=== PATIENT | female | born 1945 | race Caucasian/White ===

== ENCOUNTER 2016-12-14 16:04 | Observation (INO) | payer OTHER ==
[~2016-12-14] VITALS: Ht 160 cm; Wt 91.5 kg
[~2016-12-14 16:04] MED LIST: ALBU6.7H INH; ASPI325T PO; CITA40 PO; CYCL-36 PO; EXEN10PE SQ; GABA400 PO; ISOS30TA3 PO; LIPI80TA16 PO; NITR.3 SL; OMEP20CA5 PO; TRAZ150T75 PO; VERA240CR PO
[2016-12-14 16:07] VITALS: BP 136/64; PULSE 78; RESP 20; TEMP 97.8; O2SAT 95
--- NOTE | 2016-12-14 16:11 | PD ---
Physical Exam Time Seen by Provider: 16:09 Narrative 71 y/o female presents for evaluation of dyspnea last night with associated chest pressure radiating into L arm and neck. Symptoms reoccured today which prompted evaluation. vss Seen at triage desk. Awaiting bed placement. Data Data Last Documented VS Vital Signs Date Time Temp Pulse Resp B/P Pulse Ox O2 Delivery O2 Flow Rate FiO2 12/14/16 16:07 97.8 78 20 136/64 95 Room Air [facility] Medical Record Reviewed: Yes Supervised Visit with GALEN: Ruiz Blount December 14, 2016 16:11
--- NOTE | 2016-12-14 18:20 | EKG ---
Date Performed: 12/14/2016 Time Performed: 16:18:06 PTAGE: 71 years EKG: Sinus rhythm WITH SINUS ARRHYTHMIA NORMAL ECG PREVIOUS TRACING : 12/11/2014 01.10 No significant change from previous tracing noted. DOCTOR: Andrey Beyer Interpretating Date/Time 12/14/2016 18:19:12
[2016-12-14 20:27] VITALS: BP 126/60; PULSE 71; RESP 18; O2SAT 98
[2016-12-14 20:28] VITALS: RESP 18; O2SAT 98
--- NOTE | 2016-12-14 20:29 | PD ---
HPI Chief Complaint: Cardiac Complaint Time Seen by Provider: 20:25 Travel History International Travel<30 days: No Contact w/Intl Traveler<30days: No Traveled to known affect area: No History of Present Illness HPI Patient comes in complaining of 3 episodes of chest pain and shortness of breath one last night and 2 today. Patient states pain is pressure-like in nature and radiated to her neck and left upper extremity. Patient reports associated headache and nausea. Patient states she took a full dose aspirin yesterday as well as today for the chest pain. Patient states symptoms lasted for a few minutes each time. Patient tried using her inhalers as well with no improvement of symptoms. Patient's last cardiac catheter was 2008 and last stress test was 2013. 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 Hansen for the first time in a couple of years. Denies any vomiting, diaphoresis, fevers, or abdominal pain. PFSH Past Medical History Arthritis: Yes Asthma: Yes Autoimmune Disease: No Blood Disorders: No Anxiety: No Depression: Yes Heart Rhythm Problems: Yes ("sometimes when i lay on my side i feel fluttering ") Cancer: No Cardiac Catheterization: Yes Cardiovascular Problems: Yes (CATH) High Cholesterol: Yes Chemotherapy: No Chest Pain: Yes Congestive Heart Failure: No COPD: No Cerebrovascular Accident: No Coronary Artery Disease: Yes Diabetes: Yes Diminished Hearing: No Endocrine: No Fibromyalgia: Yes Gastrointestinal Disorders: Yes GERD: Yes Glaucoma: No Genitourinary: No Headaches: Yes Hepatitis: No Hiatal Hernia: Yes Hypertension: Yes Immune Disorder: No Kidney Stones: Yes Musculoskeletal: Yes (BURSITIS) Neurologic: Yes Psychiatric: Yes Reproductive: No Respiratory: Yes (COPD) Migraines: Yes Myocardial Infarction: No Radiation Therapy: No Renal Failure: No Seizures: Yes (> 10 YEARS AGO) Sickle Cell Disease: No Sleep Apnea: No Thyroid Disease: No Ulcer: No Menopausal: Yes : 4 Para: 3 Miscarriage: 1 Tubal Ligation: Yes Past Surgical History Abdominal Surgery: Yes (GALLBLADDER REMOVED) AICD: No Appendectomy: No Arteriovenous Shunt: No Cardiac Surgery: Yes (THOR CATH 2YRS AGO) Cholecystectomy: Yes Coronary Artery Bypass Graft: No Ear Surgery: No Endocrine Surgery: No Eye Surgery: No Genitourinary Surgery: Yes (GALL) Gynecologic Surgery: Yes (TUBAL 33 YRS AGO) Insulin Pump: No Joint Replacement: No Oral Surgery: Yes Pacemaker: No Thoracic Surgery: Yes Valve Replacement: Yes (LEFT BREAST) Other Surgery: Yes (LEFT BREAST ) Social History Alcohol Use: No Tobacco Use: No Substance Use: No Allergies-Medications (Allergen,Severity, Reaction): Coded Allergies: Benadryl (Verified Allergy, Mild, PALPATATIONS, 12/14/16) PT DENIES SHE SAYS SHE HAS TAKEN BENADRYL WITH NO EFFECTS Reported Meds & Prescriptions Reported Meds & Active Scripts Active Flexeril (Cyclobenzaprine HCl) 10 Mg Tab 10 Mg PO Q8 Reported Trazodone Hcl (Trazodone HCl) 150 Mg Tab 150 Mg PO HS Lipitor (Atorvastatin Calcium) 80 Mg Tab 40 Mg PO DAILY Byetta 10 Mcg/Dose Prefilled Pen (Exenatide) 10 Mcg/0.04 Ml Inj 5 Mcg SQ BID Celexa 40 Mg Tab (Citalopram Hydrobromide) 40 Mg Tab 40 Mg PO DAILY Isosorbide Mononitrate Er (Isosorbide Mononitrate) 30 Mg Tab 30 Mg PO DAILY Isoptin Sr (Verapamil HCl) 240 Mg Tabcr 240 Mg PO HS Neurontin (Gabapentin) 400 Mg Cap 400 Mg PO HS Nitrostat (Nitroglycerin) 0.3 Mg Subl 0.4 Mg SL Q4HPRN UNKNOWN DOSE Aspirin 325 mg (Aspirin) 325 Mg Tab 325 Mg PO DAILY Proventil Hfa (Albuterol Sulfate) 6.7 Gm Aero 2 Puff INH Q4HPRN Prilosec 20 mg (Omeprazole) 20 Mg Capcr 1-2 Tab PO DAILY Review of Systems Except as stated in HPI: all other systems reviewed are Neg Physical Exam Narrative GENERAL: Well-developed, overly nourished, in no acute distress, and non-ill appearing. SKIN: Focused skin assessment warm and dry. HEAD: Atraumatic. Normocephalic. EYES: Pupils equal and round. EOMI. No scleral icterus. No injection or drainage. ENT: No nasal bleeding or discharge. Mucous membranes pink and moist. NECK: Trachea midline. Supple. No nuclear rigidity. CARDIOVASCULAR: Regular rate and rhythm. No murmur appreciated. RESPIRATORY: No accessory muscle use. No respiratory distress. Clear to auscultation. Breath sounds equal bilaterally. MUSCULOSKELETAL: No obvious deformities. No clubbing. No cyanosis. No edema. Full range of motion. NEUROLOGICAL: Awake and alert. No obvious cranial nerve deficits. Motor grossly within normal limits. Normal speech. PSYCHIATRIC: Appropriate mood and affect; insight and judgment normal. Data Data Last Documented VS Vital Signs Date Time Temp Pulse Resp B/P Pulse Ox O2 Delivery O2 Flow Rate FiO2 12/14/16 20:49 68 18 136/61 98 Room Air 125/60 12/14/16 16:07 97.8 Orders Electrocardiogram (12/14/16 ) Basic Metabolic Panel (Bmp) (12/14/16 20:24) Ckmb (Isoenzyme) Profile (12/14/16 20:24) Complete Blood Count With Diff (12/14/16 20:24) Magnesium (Mg) (12/14/16 20:24) Prothrombin Time / Inr (Pt) (12/14/16 20:24) Act Partial Throm Time (Ptt) (12/14/16 20:24) Troponin I (12/14/16 20:24) Chest, Single Ap (12/14/16 20:24) Ecg Monitoring (12/14/16 20:24) Bilateral Bp Monitoring (12/14/16 20:24) Iv Access Insert/Monitor (12/14/16 20:24) Oximetry (12/14/16 20:24) Oxygen Administration (12/14/16 20:24) Sodium Chloride 0.9% Flush (Ns Flush) (12/14/16 20:30) Potassium Chloride (Kcl) (12/14/16 22:00) Admit Order (Ed Use Only) (12/14/16 22:22) Activity Bed Rest With Brp (12/14/16 22:22) Vital Signs (Adult) Q4H (12/14/16 22:22) Cardiac Rhythm .As Directed (12/14/16 22:22) Notify Dr: Other .PRN (12/14/16 22:22) Notify Parameters (12/14/16 22:22) Resp Oxygen Nasal Cannula (12/14/16 ) Ckmb (Isoenzyme) Profile (12/14/16 23:50) Ckmb (Isoenzyme) Profile (12/15/16 02:50) Troponin I (12/14/16 23:50) Troponin I (12/15/16 02:50) Electrocardiogram (12/14/16 23:50) Electrocardiogram (12/15/16 02:50) ^ Obtain (12/14/16 22:22) Sodium Chloride 0.9% Flush (Ns Flush) (12/14/16 22:30) Sodium Chloride 0.9% Flush (Ns Flush) (12/15/16 09:00) Mortgage Originator / Telemetry NYA.Q8H (12/14/16 22:22) Labs Laboratory Tests Test 12/14/16 20:50 White Blood Count 10.3 TH/MM3 Red Blood Count 4.26 MIL/MM3 Hemoglobin 12.0 GM/DL Hematocrit 35.6 % Mean Corpuscular Volume 83.5 FL Mean Corpuscular Hemoglobin 28.2 PG Mean Corpuscular Hemoglobin 33.7 % Concent Red Cell Distribution Width 14.7 % Platelet Count 255 TH/MM3 Mean Platelet Volume 10.0 FL Neutrophils (%) (Auto) 65.4 % Lymphocytes (%) (Auto) 24.5 % Monocytes (%) (Auto) 8.1 % Eosinophils (%) (Auto) 1.6 % Basophils (%) (Auto) 0.4 % Neutrophils # (Auto) 6.8 TH/MM3 Lymphocytes # (Auto) 2.5 TH/MM3 Monocytes # (Auto) 0.8 TH/MM3 Eosinophils # (Auto) 0.2 TH/MM3 Basophils # (Auto) 0.0 TH/MM3 CBC Comment DIFF FINAL Differential Comment Prothrombin Time 10.7 SEC Prothromb Time International 1.0 RATIO Ratio Activated Partial 26.3 SEC Thromboplast Time Sodium Level 141 MEQ/L Potassium Level 3.4 MEQ/L Chloride Level 106 MEQ/L Carbon Dioxide Level 26.5 MEQ/L Anion Gap 9 MEQ/L Blood Urea Nitrogen 13 MG/DL Creatinine 0.61 MG/DL Estimat Glomerular Filtration 97 ML/MIN Rate Random Glucose 163 MG/DL Calcium Level 8.4 MG/DL Magnesium Level 1.8 MG/DL Total Creatine Kinase 93 U/L Troponin I LESS THAN 0.02 NG/ML MDM Medical Decision Making Medical Screen Exam Complete: Yes Emergency Medical Condition: Yes Medical Record Reviewed: Yes Interpretation(s) EKG reviewed by Dr. Lang shows sinus rhythm with ventricular is 75. No STEMI. Differential Diagnosis Angina, acute coronary syndrome, pneumonia, other Narrative Course Patient was seen and examined. Initial laboratory and radiological studies were obtained and reviewed. Patient potassium was replaced. Discussed patient with Dr. Lang, who recommends having patient admitted to the chest pain center for further treatment and evaluation. Discussed all findings and plan care of patient, who was agreeable for admission. All questions were answered. Patient remained stable in the emergency department. Diagnosis Primary Impression: Chest pain Qualified Code: R07.9 - Chest pain, unspecified type Admitting Information Admitting Physician Requests: Observation Condition: Stable Gerry Cheema December 14, 2016 20:29
[2016-12-14] MEDS ORDERED: SODIUM CHLORIDE 0.9% FLUSH 10 ML FLUSH IVF PRN (20:30)
[2016-12-14 20:49] VITALS: BP_SYST 125; BP_SYST 136; BP_DIAS 60; BP_DIAS 61; PULSE 68; RESP 18; O2SAT 98
--- NOTE | 2016-12-14 20:53 | RADRPT ---
EXAM DATE/TIME: 12/14/2016 20:38 [facility] COMPARISON: No previous studies available for comparison. INDICATIONS : Chest pain. MEDICAL HISTORY : None. SURGICAL HISTORY : None. ENCOUNTER: Initial ACUITY: 1 day PAIN SCORE: 5/10 LOCATION: Bilateral chest FINDINGS: A single view of the chest demonstrates the lungs to be symmetrically aerated without evidence of mas s, infiltrate or effusion. The cardiomediastinal contours are unremarkable. Osseous structures are intact. CONCLUSION: No evidence of acute cardiopulmonary disease. Donta Packer MD on December 14, 2016 at 20:51 Board Certified Radiologist. This report was verified electronically.
[2016-12-14 21:18] VITALS: BP 144/79; PULSE 94; RESP 16; O2SAT 98
[2016-12-14 21:21] LABS: AUTOMATED NEUTROPHIL # 6.8 TH/MM3 (1.8-7.7); BASOPHIL % 0.4 % (0.0-2.0); EOSINOPHIL # 0.2 TH/MM3 (0-0.4); EOSINOPHIL % 1.6 % (0.0-4.0); HEMATOCRIT 35.6 % (35.0-46.0); HEMO FLAGS DIFF FINAL; LYMPH % 24.5 % (9.0-44.0); LYMPHOCYTE # 2.5 TH/MM3 (1.0-4.8); MEAN CELL VOLUME 83.5 FL (80.0-100.0); MEAN CORPUSCULAR HEMOGLOBIN 28.2 PG (27.0-34.0); MEAN CORPUSCULAR HGB CONC 33.7 % (32.0-36.0); MONO % 8.1 % (0.0-8.0); NEUT % 65.4 % (16.0-70.0); PLATELET COUNT 255 TH/MM3 (150-450); RED BLOOD COUNT 4.26 MIL/MM3 (4.00-5.30); RED CELL DISTRIBUTION WIDTH 14.7 % (11.6-17.2); WHITE BLOOD COUNT 10.3 TH/MM3 (4.0-11.0)
[2016-12-14 21:31] LABS: APTT (PATIENT) 26.3 SEC (24.3-30.1); PROTHROMBIN TIME - PATIENT 10.7 SEC (9.8-11.6)
[2016-12-14 21:40] LABS: ANION GAP 9 MEQ/L (5-15); BICARBONATE 26.5 MEQ/L (21.0-32.0); BLOOD UREA NITROGEN 13 MG/DL (7-18); CHLORIDE 106 MEQ/L (98-107); GLOMERULAR FILTRATION RATE 97 ML/MIN (>89); MAGNESIUM 1.8 MG/DL (1.5-2.5); POTASSIUM 3.4 MEQ/L (3.5-5.1); SODIUM (NA) 141 MEQ/L (136-145)
[2016-12-14 21:53] LABS: CREATINE KINASE 93 U/L (26-192)
[2016-12-14] MEDS ORDERED: POTASSIUM CHLORIDE 20 MEQ CONTROLLED RELEASE TAB PO ONE (22:00)
[2016-12-14] MEDS ORDERED: SODIUM CHLORIDE 0.9% FLUSH 10 ML FLUSH IV FLUSH PRN (22:30)
[2016-12-14] MEDS ORDERED: NITR1SUB3 SL (23:10)
[2016-12-14] MEDS ORDERED: ISOS30TA3 PO (23:10)
[2016-12-14] MEDS ORDERED: TRAZ150T75 PO (23:10)
[2016-12-14] MEDS ORDERED: OMEP20TA PO (23:10)
[2016-12-14] MEDS ORDERED: LOSA25TA PO (23:10)
[2016-12-14] MEDS ORDERED: VERA240T16 PO (23:10)
[2016-12-14] MEDS ORDERED: GABA400C5 PO (23:10)
[2016-12-14] MEDS ORDERED: ATOR40TA16 PO (23:10)
[2016-12-14] MEDS ORDERED: ALBU6.7H INH (23:10)
[2016-12-14] MEDS ORDERED: ASPI325T PO (23:10)
[2016-12-14] MEDS ORDERED: CYCL1TAB29 PO (23:12)
[2016-12-14] MEDS ORDERED: METF-382 PO (23:15)
[2016-12-14] MEDS ORDERED: METF500T4 PO (23:15)
[2016-12-14] MEDS ORDERED: BUTA1CAP PO ×2 (23:19→23:53)
[2016-12-14] MEDS ORDERED: CELE40TA PO (23:22)
[2016-12-15] VITALS (9 sets, daily range): BP systolic 117–139; BP diastolic 58–66; PULSE 58–72; RESP 16–20; TEMP 96.2–97.8; O2SAT 94–99
[2016-12-15] MEDS ORDERED: ACETAMIN 325 MG/BUTALBITAL 50 MG/CAFFEINE 40 MG TAB PO ONE ×2 (00:15→12:00)
[2016-12-15] MEDS ORDERED: GABAPENTIN 400 MG CAP PO ONE (01:00)
[2016-12-15] MEDS ORDERED: traZODone HCL 100 MG TAB PO ONE (01:00)
[2016-12-15 01:25] LABS: CREATINE KINASE 79 U/L (26-192)
[2016-12-15 04:20] LABS: CREATINE KINASE 76 U/L (26-192)
--- NOTE | 2016-12-15 08:00 | HHI.HP ---
HPI Primary Care Physician Cheo Bennett MD Chief Complaint Chest pressure History of Present Illness 71-year-old female presents to the emergency room for further evaluation chest discomfort, left arm pain, and shortness of breath. Onset 7 PM Wednesday evening, nonexertional she was sitting on the couch. Experienced sudden shortness of breath described as "gasping for air" accompanied with substernal chest tightness and left arm, left shoulder "severe pain." Episode lasted approximately 1 minute. On Wednesday afternoon she developed the same left arm left shoulder been accompanied with left neck pain, shortness of breath not as severe as Wednesday's episode with this episode lasted hours. Chest pressure. Episode lasted hours. And it hurt to move her arm. She has never had pain like this in the past. 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 Review of Systems General: No fatigue,weakness, fever, chills, recent illness change, or change in appetite HEENT: No PETERSON, no nasal congestion or drainage, no dysphasia CV: As stated above. States chest pressure has much improved and "mild at this time." No palpitations, intermittent leg pain, or dizziness. RESP: No SOB, cough, wheeze, recent URI. Endorses COPD and asthma and stable. GI: Late part of last week had 24 hours and diarrhea this is since resolved. No nausea, vomiting, bowel changes, constipation, pain, distention, melena, blood in the stool. : No dysuria, urgency, frequency EXT: No lower leg edema, no paraesthesias MS: No discomfort or change in ROM NEURO: No change in memory, dizziness, difficulty with balance, LOC, motor/ sensory deficits PSYCH: Stable anxiety and depression on current medications. SKIN: No rashes, no concerning lesions Past Family Social History Allergies: Coded Allergies: Benadryl (Verified Allergy, Mild, PALPATATIONS, 12/14/16) PT DENIES SHE SAYS SHE HAS TAKEN BENADRYL WITH NO EFFECTS Past Medical History Anxiety, depression, GERD, neuropathy, angina Reported Medications Active Reported Fioricet (Szlyxielrj-Vdahgnpdzayhb-Eoczkzqb) 50-300-40 Mg Cap 1-2 Cap PO Q6H PRN Celexa (Citalopram Hydrobromide) 40 Mg Tab 40 Mg PO DAILY Metformin ER (Metformin HCl) 500 Mg Adrienne 500 Mg PO TIDPC With evening meal Flexeril (Cyclobenzaprine HCl) 10 Mg Tab 10 Mg PO Q8HR PRN Atorvastatin (Atorvastatin Calcium) 40 Mg Tab 40 Mg PO HS Aspirin 325 Mg Tab 325 Mg PO DAILY Proventil Hfa 6.7 GM Inh (Albuterol Sulfate) 90 Mcg/Act Aer 2 Puff INH Q4HR PRN Gabapentin 400 Mg Cap 400 Cap PO HS Isosorbide Mononitrate ER (Isosorbide Mononitrate) 30 Mg Adrienne 30 Mg PO DAILY Nitroglycerin SL (Nitroglycerin) 0.4 Mg Subl 0.4 Mg SL DIRECTED PRN ONE TABLET UNDER THE TONGUE NEEDED FOR CHEST PAIN, MAY REPEAT EVERY FIVE MINUTES FOR A TOTAL OF 3 DOSES OR CALL 911 IF NO RELIEF Omeprazole 20 Mg Tab 20 Mg PO DAILY Trazodone (Trazodone HCl) 150 Mg Tab 150 Mg PO HS Losartan (Losartan Potassium) 25 Mg Tab 25 Mg PO DAILY Verapamil SR (Verapamil HCl) 240 Mg Tab 240 Mg PO HS Active Ordered Medications Current Medications Medications (Trade) Dose Ordered Sig/Akbar Route Start Time Stop Time Status Last Admin Family History Noncontributory for early onset cardiovascular disease. Social History Known diabetes, hypertension, and hyperlipidemia. Lifelong nonsmoker. Denies any alcohol or illegal drug use. Past Cardiac testing No recent stress testing. Seen Dr. Hansen 2 months ago. Last stress test completed 2013. 2008 cardiac catheterization1. Normal LVF. 2. Severe disease of the nondominant RCA. This will be medically managed as it is too small for revascularization. Physical Exam Vital Signs Vital Signs Date Time Temp Pulse Resp B/P Pulse Ox O2 Delivery O2 Flow Rate FiO2 12/15/16 07:47 58 12/15/16 05:48 97.8 65 18 135/59 97 12/15/16 04:01 97.8 62 18 139/63 95 12/15/16 03:49 66 18 131/60 98 Room Air 12/15/16 00:15 65 18 127/58 99 Room Air 12/14/16 22:42 99 Room Air 12/14/16 20:49 68 18 136/61 98 Room Air 125/60 12/14/16 20:28 18 98 Room Air 12/14/16 20:27 71 18 126/60 98 Room Air 12/14/16 20:24 69 18 98 Room Air 12/14/16 16:07 97.8 78 20 136/64 95 Room Air Physical Exam GENERAL: Alert WN, WD, NAD, pleasant, obese, female HEAD: NC, AT EYES: Sclera clear, conjunctiva without injection ENT: Mucous membranes pink and moist NECK: Supple, no masses, trachea midline CV: RRR, without murmur, rub, gallop, no JVD, S1-S2 no S3-S4. No carotid bruits. RESP: Clear lungs throughout bilateral, no crackles, wheeze, rhonchi, symmetrical chest rise, nonlabored, able to speak in full sentences. ABD: Soft, NT, ND, no masses, positive bowel tones EXT: Pulses +14, no dependent edema MS: Normal tone 4 extremities, nontender, no obvious deformities, full range of motion NEURO: CN II through CN XII grossly intact, motor strength 5/5, gait WNL PSYCH: A+O 3, pleasant affect, appropriate speech, appropriate mood and affect , insight and judgment SKIN: Normal turgor, normal texture, no lesions, no rashes Laboratory Laboratory Tests Test 12/14/16 12/15/16 12/15/16 20:50 00:42 03:07 White Blood Count 10.3 Red Blood Count 4.26 Hemoglobin 12.0 Hematocrit 35.6 Mean Corpuscular Volume 83.5 Mean Corpuscular Hemoglobin 28.2 Mean Corpuscular Hemoglobin 33.7 Concent Red Cell Distribution Width 14.7 Platelet Count 255 Mean Platelet Volume 10.0 Neutrophils (%) (Auto) 65.4 Lymphocytes (%) (Auto) 24.5 Monocytes (%) (Auto) 8.1 Eosinophils (%) (Auto) 1.6 Basophils (%) (Auto) 0.4 Neutrophils # (Auto) 6.8 Lymphocytes # (Auto) 2.5 Monocytes # (Auto) 0.8 Eosinophils # (Auto) 0.2 Basophils # (Auto) 0.0 CBC Comment DIFF FINAL Differential Comment Prothrombin Time 10.7 Prothromb Time International 1.0 Ratio Activated Partial 26.3 Thromboplast Time Sodium Level 141 Potassium Level 3.4 Chloride Level 106 Carbon Dioxide Level 26.5 Anion Gap 9 Blood Urea Nitrogen 13 Creatinine 0.61 Estimat Glomerular Filtration 97 Rate Random Glucose 163 Calcium Level 8.4 Magnesium Level 1.8 Total Creatine Kinase 93 79 76 Troponin I LESS THAN 0.02 LESS THAN 0.02 LESS THAN 0.02 Result Diagram: 12/14/16204912/14/162049 Imaging Last Impressions Chest X-Ray 12/14/162023 Signed Impressions: Service Date/Time: Wednesday, December 14, 2016 20:38 - CONCLUSION: No evidence of acute cardiopulmonary disease. Donta Packer MD Course EKGs 3 EKGs show normal sinus rhythm, no ST or T-segment changes Assessment and Plan Assessment and Plan #1 Chest painadmitted to chest pain center. With 3 sets of EKGs, cardiac enzymes, and monitored overnight. Seen and evaluated by Dr. Juno Fragoso. Will order chemical stress test for this morning. If stress test is unremarkable she will be later discharged this afternoon. Discussed with patient in length and she is agreeable to this plan of care. #2 Depressioncontinue Celexa #3 Hyperlipidemiacontinue atorvastatin #4 Diabetescontinue metformin #5 Angina-continue Imdur #6 Hypertension-continue losartan and verapamil #7 GERD continue omeprazole Enriqueta Sánchez December 15, 2016 08:00
[2016-12-15] MEDS ORDERED: SODIUM CHLORIDE 0.9% FLUSH 10 ML FLUSH IV FLUSH PRN (08:15)
[2016-12-15] MEDS ORDERED: ACETAMINOPHEN 500 MG CPLT PO PRN (08:15)
[2016-12-15] MEDS ORDERED: ONDANSETRON HCL 4 MG/2 ML VIAL IV PRN (08:15)
[2016-12-15] MEDS ORDERED: NITROGLYCERIN 0.4 MG SL 25 TABS/BTL SL PRN (08:15)
[2016-12-15] MEDS ORDERED: ISOSORBIDE MONONITRATE 30 MG TAB PO SCH (09:00)
[2016-12-15] MEDS ORDERED: SODIUM CHLORIDE 0.9% FLUSH 10 ML FLUSH IV FLUSH SCH (09:00)
[2016-12-15] MEDS ORDERED: metFORMIN HCL 500 MG TAB PO SCH (09:00)
[2016-12-15] MEDS ORDERED: ASPIRIN 325 MG TAB PO SCH (09:00)
[2016-12-15] MEDS ORDERED: CITALOPRAM HYDROBROMIDE 40 MG TAB PO SCH (09:00)
[2016-12-15] MEDS ORDERED: PANTOPRAZOLE SOD 20 MG DELAYED RELEASE TAB PO SCH (09:00)
[2016-12-15] MEDS ORDERED: LOSARTAN 25 MG TAB PO SCH (09:00)
[2016-12-15] MEDS ORDERED: REGADENOSON INJ 0.4 MG/5 ML SYR ONE (09:42)
--- NOTE | 2016-12-15 11:09 | RADRPT ---
EXAM DATE/TIME: 12/15/2016 08:58 [facility] COMPARISON: No previous studies available for comparison. INDICATIONS : Chest pain radiating to the back with dyspnea, headache and nausea. Angina. DOSE: 25.8 mCi Tc99m Myoview at stress. 8.4 mCi Tc99m Myoview at rest. 0.4 mg Lexiscan STRESS SYMPTOMS: Short of breath. EJECTION FRACTION: 68% MEDICAL HISTORY : Gastroesophageal reflux disease. Chronic obstructive pulmonary disease. Hypercholesterolemia. Hyperte nsion. Hiatal Hernia. SURGICAL HISTORY : Tubal ligation. Cholecystectomy. ENCOUNTER: Initial ACUITY: 2 days PAIN SCALE: 6/10 LOCATION: chest TECHNIQUE: The patient underwent pharmacologic stress with infusion of prescribed dose. Continuous ECG tracing was monitored during stress. Gated SPECT imaging was performed after stress and conventional SPECT i maging was performed at rest. The examination was performed on a SPECT/CT scanner, both attenuation and non-corrected datasets were reviewed. FINDINGS: DISTRIBUTION: The maximum perfused segment at stress is in the anterolateral wall. PERFUSION STUDY: The pattern of perfusion at stress is within normal limits. GATED STUDY: There is intact wall motion and thickening without hypokinetic or dyskinetic segments. CONCLUSION: Normal examination. RISK CATEGORY: Low (<1% Annual Mortality Rate) Donta Azul MD on December 15, 2016 at 11:05 Board Certified Radiologist. This report was verified electronically.
--- NOTE | 2016-12-15 11:24 | HHI.DCPOC ---
Discharge Care Plan Diagnosis: (1) Atypical chest pain (2) Diabetes mellitus type 2 in obese (3) Hypertension (4) Hyperlipidemia Goals to Promote Your Health * To prevent worsening of your condition and complications * To maintain your health at the optimal level Directions to Meet Your Goals Take your medications as prescribed Follow your dietary instruction Follow activity as directed Keep your appointments as scheduled Take your immunizations and boosters as scheduled If your symptoms worsen call your PCP, if no PCP go to Urgent Care Center or Emergency Room Smoking is Dangerous to Your Health. Avoid second hand smoke Call the 24-hour hour crisis hotline for domestic abuse at Enriqueta Sánchez December 15, 2016 11:24
[2016-12-15] MEDS ORDERED: LOPERAMIDE HCL 2 MG CAP PO ONE (11:30)
--- NOTE | 2016-12-15 14:36 | EKG ---
Date Performed: 12/15/2016 Time Performed: 00:29:13 PTAGE: 71 years EKG: Sinus rhythm NORMAL ECG PREVIOUS TRACING : 12/14/2016 16.18 Since previous tracing, no significant change noted DOCTOR: Juno Fragoso Interpretating Date/Time 12/15/2016 14:34:51
--- NOTE | 2016-12-15 14:36 | EKG ---
Date Performed: 12/15/2016 Time Performed: 03:40:41 PTAGE: 71 years EKG: Sinus rhythm WITH SINUS ARRHYTHMIA NORMAL ECG PREVIOUS TRACING : 12/15/2016 00.29 Since previous tracing, no significant change noted DOCTOR: Juno Fragoso Interpretating Date/Time 12/15/2016 14:34:08
--- NOTE | 2016-12-15 14:40 | EKG ---
Date Performed: 12/15/2016 Time Performed: 05:41:50 PTAGE: 71 years EKG: Sinus rhythm WITH MARKED SINUS ARRHYTHMIA BORDERLINE ECG INTERPRETATION BASED ON A DEFAULT AGE OF 40 YEARS PREVIOUS TRACING : 12/15/2016 03.40 Since previous tracing, no significant change noted DOCTOR: Juno Fragoso Interpretating Date/Time 12/15/2016 14:40:14
--- NOTE | 2016-12-15 14:49 | TR ---
Date Performed: 12/15/2016 Time Performed: 09:49:08 DOCTOR: Juno Fragoso DRUG LIST: LIPITOR ASA CLINICAL HISTORY: HTN ASTHMA DIABETES CARDIAC CATH CHESS REASON FOR TEST: REASON FOR ENDING: OBSERVATION: CONCLUSION: Lexiscan stress test was performed under standard four minute protocol. Radionuclid e was injected one minute prior to ending the test. No electrocardiographic abormalities were present to suggest ischemia. Nuclear imaging and interpretation are pending. COMMENTS:
[2016-12-15] MEDS ORDERED: ATORVASTATIN 40 MG TAB PO SCH (21:00)
[2016-12-15] MEDS ORDERED: VERAPAMIL HCL 240 MG SUSTAINED RELEASE TAB PO SCH (21:00)
== END 2016-12-15 14:06 | disposition home or self-care (01) ==
LOC: NEPE 16:04 → NEDA 22:25 → NEPFCDU 12-15 03:54
PROVIDERS: ADMIT Internal Medicine Cardiovascular Disease; ATTEND Internal Medicine Cardiovascular Disease
DX: R07.89 Other chest pain (principal); I10 Essential (primary) hypertension; R94.31 Abnormal electrocardiogram [ECG] [EKG]; E78.5 Hyperlipidemia, unspecified; E11.9 Type 2 diabetes mellitus without complications; E78.00 Pure hypercholesterolemia, unspecified; J44.9 Chronic obstructive pulmonary disease, unspecified; J45.909 Unspecified asthma, uncomplicated; K21.9 Gastro-esophageal reflux disease without esophagitis; F32.9 Major depressive disorder, single episode, unspecified; M79.7 Fibromyalgia; Z87.442 Personal history of urinary calculi
CPT/HCPCS: 71010; 78452; 80048; 82550; 83735; 84484; 85025; 85610; 85730; 93005; 93017; 99285; A9502; G0378; J2785

== ENCOUNTER → 2017-02-19 | Outpatient (CLI) | payer OTHER ==
[~2017-02-19] MED LIST changes: +ATOR40TA16 PO; +BUTA1CAP PO; +CELE40TA PO; -CITA40 PO; -CYCL-36 PO; +CYCL1TAB29 PO; -EXEN10PE SQ; -GABA400 PO; +GABA400C5 PO; -LIPI80TA16 PO; +LOSA25TA PO; +METF500T4 PO; -NITR.3 SL; +NITR1SUB3 SL; -OMEP20CA5 PO; +OMEP20TA PO; -VERA240CR PO; +VERA240T16 PO
--- NOTE | 2017-02-23 11:02 | RSPPFT ---
DATE OF PROCEDURE: 02/19/17 COMMENTS: VOLUMES DYNAMIC: FVC and FEV1 normal. STATIC: RV, FRC mildly reduced; TLC normal. FLOWS: FEV1% and FEF 25-75 normal. DIFFUSION: Low normal. FLOW VOLUME LOOP: Normal configuration. IMPRESSION: Mild reduction in FRC and RV possibly due to increased BMI with no other associated obstruction and normal total lung capacity. Diffusion capacity is normal. There is no improvement post-bronchodilator.
== END ==
LOC: HRSP 13:04
PROVIDERS: ATTEND Internal Medicine
DX: J45.909 Unspecified asthma, uncomplicated (principal)
CPT/HCPCS: 94060; 94620; 94726; 94729; 95012

== ENCOUNTER 2017-03-08 11:43 | Emergency (ER) | payer OTHER ==
[~2017-03-08] VITALS: Ht 165.1 cm; Wt 75.0 kg
[2017-03-08 12:18] VITALS: BP 162/76; PULSE 78; RESP 20; TEMP 98.3; O2SAT 98
--- NOTE | 2017-03-08 13:06 | PD ---
HPI Chief Complaint: Pain: Acute or Chronic Time Seen by Provider: 12:55 Travel History International Travel<30 days: No Contact w/Intl Traveler<30days: No Traveled to known affect area: No History of Present Illness HPI 72-year-old female who reports a history of osteoporosis, diabetes, hypertension , hyperlipidemia. She presents via EMS for evaluation of all flank pain. She reports that 5 days ago she bent over in order to grab a pain. She felt a twinge of pain in her left leg at that time. Over the course of the past 5 days she has had worsening pain in her left leg, primarily thigh region but also occasional twinges of pain in her left lower leg. The pain is a sharp/ shooting pain which is constant, worse with movement of the left leg. She tried using naproxen but symptoms persisted which prompted evaluation. She versus chronic lower back pain but does not feel that it is any worse over the past few days. She denies any bowel or bladder incontinence or saddle anesthesia, lower extremity paresthesias or weakness, nausea or vomiting, abdominal pain. She has no other complaints. PFSH Past Medical History Arthritis: Yes Asthma: Yes Autoimmune Disease: No Blood Disorders: No Anxiety: No Depression: Yes Heart Rhythm Problems: Yes ("sometimes when i lay on my side i feel fluttering ") Cancer: No Cardiac Catheterization: Yes High Cholesterol: Yes Chemotherapy: No Chest Pain: Yes Congestive Heart Failure: No COPD: No Cerebrovascular Accident: No Coronary Artery Disease: Yes Diabetes: No Diminished Hearing: No Endocrine: No Fibromyalgia: Yes Gastrointestinal Disorders: Yes GERD: Yes Glaucoma: No Genitourinary: No Headaches: Yes Hepatitis: No Hiatal Hernia: Yes Hypertension: Yes Immune Disorder: No Kidney Stones: Yes Musculoskeletal: Yes (BURSITIS) Neurologic: Yes Psychiatric: Yes Reproductive: No Respiratory: Yes (COPD) Migraines: Yes Myocardial Infarction: No Radiation Therapy: No Renal Failure: No Seizures: Yes (> 10 YEARS AGO) Sickle Cell Disease: No Sleep Apnea: No Thyroid Disease: No Ulcer: No Menopausal: Yes : 4 Para: 3 Miscarriage: 1 Tubal Ligation: Yes Past Surgical History Abdominal Surgery: Yes (GALLBLADDER REMOVED) AICD: No Appendectomy: No Arteriovenous Shunt: No Cardiac Surgery: Yes (HEART CATH 2YRS AGO) Cholecystectomy: Yes Coronary Artery Bypass Graft: No Ear Surgery: No Endocrine Surgery: No Eye Surgery: No Genitourinary Surgery: Yes (GALL) Gynecologic Surgery: Yes (TUBAL 33 YRS AGO) Insulin Pump: No Joint Replacement: No Oral Surgery: Yes Pacemaker: No Thoracic Surgery: Yes Valve Replacement: Yes (LEFT BREAST) Other Surgery: Yes (LEFT BREAST CALCIFACTIONS REMOVED) Social History Alcohol Use: No Tobacco Use: No Substance Use: No Allergies-Medications (Allergen,Severity, Reaction): Coded Allergies: Benadryl (Verified Allergy, Mild, PALPATATIONS, 12/14/16) PT DENIES SHE SAYS SHE HAS TAKEN BENADRYL WITH NO EFFECTS Reported Meds & Prescriptions Reported Meds & Active Scripts Active Baclofen 10 Mg Tab 10 Mg PO Q8HR PRN 7 Days Tylenol-Codeine #3 (Acetaminophen-Codeine) 300-30 mg Tab 1 Tab PO Q4H PRN Naproxen 500 Mg Tab 500 Mg PO BID 7 Days Reported Fioricet (Rmxhrhdtfa-Vvnjwqmnghdxk-Tcuqyfej) 50-300-40 Mg Cap 1-2 Cap PO Q6H PRN Celexa (Citalopram Hydrobromide) 40 Mg Tab 40 Mg PO DAILY Metformin ER (Metformin HCl) 500 Mg Adrienne 500 Mg PO TIDPC With evening meal Flexeril (Cyclobenzaprine HCl) 10 Mg Tab 10 Mg PO Q8HR PRN Atorvastatin (Atorvastatin Calcium) 40 Mg Tab 40 Mg PO HS Aspirin 325 Mg Tab 325 Mg PO DAILY Proventil Hfa 6.7 GM Inh (Albuterol Sulfate) 90 Mcg/Act Aer 2 Puff INH Q4HR PRN Gabapentin 400 Mg Cap 400 Cap PO HS Isosorbide Mononitrate ER (Isosorbide Mononitrate) 30 Mg Adrienne 30 Mg PO DAILY Nitroglycerin SL (Nitroglycerin) 0.4 Mg Subl 0.4 Mg SL DIRECTED PRN ONE TABLET UNDER THE TONGUE NEEDED FOR CHEST PAIN, MAY REPEAT EVERY FIVE MINUTES FOR A TOTAL OF 3 DOSES OR CALL 911 IF NO RELIEF Omeprazole 20 Mg Tab 20 Mg PO DAILY Trazodone (Trazodone HCl) 150 Mg Tab 150 Mg PO HS Losartan (Losartan Potassium) 25 Mg Tab 25 Mg PO DAILY Verapamil SR (Verapamil HCl) 240 Mg Tab 240 Mg PO HS Review of Systems Except as stated in HPI: all other systems reviewed are Neg Physical Exam Narrative GENERAL: Well-developed well-nourished female in no acute distress SKIN: Warm and dry. HEAD: Atraumatic. Normocephalic. EYES: Pupils equal and round. No scleral icterus. No injection or drainage. ENT: No nasal bleeding or discharge. Mucous membranes pink and moist. NECK: Trachea midline. No JVD. CARDIOVASCULAR: Regular rate and rhythm. No murmur appreciated. RESPIRATORY: No accessory muscle use. Clear to auscultation. Breath sounds equal bilaterally. GASTROINTESTINAL: Abdomen soft, non-tender, nondistended. Hepatic and splenic margins not palpable. MUSCULOSKELETAL: No obvious deformities. There is no tenderness to palpation along the thoracic or lumbar midline spine. There is some tenderness to palpation to the anterior left thigh musculature. The compartments of the left thigh and calf are soft. Negative Homans. No lower extremity edema. 2+ dorsalis pedis, posterior tibial, femoral pulses bilaterally. The patient has pain with left hip flexion, extension, leg flexion and extension. NEUROLOGICAL: Awake and alert. No obvious cranial nerve deficits. Motor grossly within normal limits. Normal speech. Data Data Last Documented VS Vital Signs Date Time Temp Pulse Resp B/P Pulse Ox O2 Delivery O2 Flow Rate FiO2 03/08/17 12:18 98.3 78 20 162/76 98 Orders Hip, Uni(Ap&Lat) W Ap Pelvis (03/08/17 ) Spine, Lumbar - Ltd (Ap & Lat) (03/08/17 ) Us Leg Venous Doppler (03/08/17 13:01) Ketorolac Inj (Toradol Inj) (03/08/17 13:15) Morphine Inj (Morphine Inj) (03/08/17 13:15) Ondansetron Inj (Zofran Inj) (03/08/17 13:15) Iv Access Insert/Monitor (03/08/17 13:01) [facility] Medical Decision Making Medical Screen Exam Complete: Yes Emergency Medical Condition: Yes Medical Record Reviewed: Yes Differential Diagnosis Muscle strain, spasm, compression fracture, avulsion fracture, peripheral vascular disease, claudication, arterial occlusion, DVT, piriformis syndrome, herniated pulposus Narrative Course 72-year-old female has been experiencing left leg pain which started after she bent over in order to lift up in 5 days ago. Physical examination is reassuring. She has bounding lower extremity pulses bilaterally with no evidence of peripheral vascular disease or arterial occlusion. She has no lower extremity edema. She has no bony deformity. She has mild tenderness to palpation of the anterior left thigh but her pain is primarily reproduced with range of motion activities of the proximal left leg. Given her history and mechanism injury I suspect a muscle strain, possibly radicular component of her pain. Given her history of osteoporosis, x-ray imaging the lower back and pelvis were performed and they were negative for acute process. Ultrasound of the left leg was performed and this was negative for DVT. The patient was given pain medication with improvement in her symptoms. At this point on the clinical be to treat the patient symptomatically with a short course of NSAIDs, muscle relaxants, Tylenol with codeine for breakthrough pain and have her follow up with her primary care physician later on this week. She is agreeable to this plan. She is stable for discharge. Diagnosis Primary Impression: Left leg pain Additional Instructions: Medication as needed. Take naproxen with meals. Do not drive or drink alcohol when taking baclofen or Tylenol with Codeine as a May cause sedation. Avoid strenuous activity. Use walker/cane as needed. Follow up in 2-3 days with primary care physician and return for any emergent medical conditions. Med/Other Pt SpecificInfo: Prescription(s) given Scripts Baclofen 10 Mg Tab10 Mg PO Q8HR PRN (MUSCLE SPASM) 7 Days Ref 0 Prov:Kailee Rodriguez MD 03/08/17 Acetaminophen-Codeine (Tylenol-Codeine #3)300-30 mg Tab1 Tab PO Q4H PRN (PAIN) # 20 TAB Ref 0 Prov:Kailee Rodriguez MD 03/08/17 Naproxen 500 Mg Toc058 Mg PO BID 7 Days Ref 0 Prov:Kailee Rodriguez MD 03/08/17 Disposition: 01 DISCHARGE HOME Condition: Stable Ruiz Quiroz Mar 08, 2017 13:06
[2017-03-08] MEDS ORDERED: KETOROLAC TROMETHAMINE 30 MG/ML (IVP) VIAL IV PUSH ONE (13:15)
[2017-03-08] MEDS ORDERED: MORPHINE SULFATE 4 MG/ML INJ IV PUSH ONE (13:15)
[2017-03-08] MEDS ORDERED: ONDANSETRON HCL 4 MG/2 ML VIAL IV PUSH ONE (13:15)
--- NOTE | 2017-03-08 13:34 | RADRPT ---
EXAM DATE/TIME: 03/08/2017 13:11 [facility] COMPARISON: No previous studies available for comparison. INDICATIONS : Left leg pain. MEDICAL HISTORY : Hypercholesterolemia. Inflammatory bowel disease. Emphysema. Seizures. Head trauma. Migraines. Num bness. Coronary artery disease. Asthma. Dyspnea. HTN. Hiatal hernia. GERD. Renal calculi. Prolapse ut erus. Bursitis. Fibromyalgia. Arthritis. Degenerative disc disease. PTSD. SURGICAL HISTORY : Cholecystectomy. Tubal ligation. Cardiac cath. Left breast calcifications removed. ENCOUNTER: Initial ACUITY: 4 - 6 days PAIN SCORE: 10/10 LOCATION: Left leg. TECHNIQUE: Venous ultrasound of the leg was performed from the inguinal ligament to the proximal calf. Real-ashley e, color Doppler and spectral tracing, compression and augmentation techniques were used. FINDINGS: There is normal compressibility of the deep venous system from the inguinal region to the proximal ca lf. No echogenic clot is seen in the lumen of the common femoral, femoral, popliteal, and posterior tibial veins. There is a normal response of the venous system to proximal and distal augmentation an d respiration. CONCLUSION: No evidence of deep venous thrombosis within the left lower extremity. Abram Dnaiels MD on March 08, 2017 at 13:32 Board Certified Radiologist. This report was verified electronically.
--- NOTE | 2017-03-08 14:06 | RADRPT ---
EXAM DATE/TIME: 03/08/2017 13:45 [facility] COMPARISON: No previous studies available for comparison. INDICATIONS : Left hip and groin pain. Lower back pain. Over extension. MEDICAL HISTORY : Hypercholesterolemia. Inflammatory bowel disease. Emphysema. Seizures. Head trauma. Migraines. Nu mbness. Coronary artery disease. Asthma. Dyspnea. HTN. Hiatal hernia. GERD. Renal calculi. Prolapse u terus. Bursitis. Fibromyalgia. Arthritis. Degenerative disc disease. PTSD. SURGICAL HISTORY : Cholecystectomy. Tubal ligation. Cardiac cath. Left breast calcifications removed. ENCOUNTER: Initial ACUITY: 4 - 6 days PAIN SCORE: 9/10 LOCATION: Left hip, groin FINDINGS: There is no acute fracture or dislocation of either hip. Mild degenerative changes are noted involvi ng hip joints and lower lumbar spine. CONCLUSION: 1. No acute fracture or dislocation. 2. Mild degenerative changes involving the hip joints and lower lumbar spine. Abram Daniels MD on March 08, 2017 at 14:01 Board Certified Radiologist. This report was verified electronically.
--- NOTE | 2017-03-08 14:41 | RADRPT ---
EXAM DATE/TIME: 03/08/2017 13:45 [facility] COMPARISON: No previous studies available for comparison. INDICATIONS : Left hip, groin, and low back pain. Over extension. MEDICAL HISTORY : Hypercholesterolemia. Inflammatory bowel disease. Emphysema. Seizures. Head trauma. Migraines. Nu mbness. Coronary artery disease. Asthma. Dyspnea. HTN. Hiatal hernia. GERD. Renal calculi. Prolapse u terus. Bursitis. Fibromyalgia. Arthritis. Degenerative disc disease. PTSD. SURGICAL HISTORY : Cholecystectomy. Tubal ligation. Cardiac cath. Left breast calcifications removed. ENCOUNTER: Initial ACUITY: 4 - 6 days PAIN SCORE: 9/10 LOCATION: Left hip, groin, lumbar FINDINGS: Mild degenerative changes are noted throughout the lumbar spine. There is no acute compression fractu re, spondylolisthesis or spondylolysis. CONCLUSION: 1. Mild degenerative changes involving the lumbar spine. 2. No acute compression fracture, spondylolisthesis, or spondylolysis. Abram Daniels MD on March 08, 2017 at 14:09 Board Certified Radiologist. This report was verified electronically.
[2017-03-08] MEDS ORDERED: NAPR500T PO (15:32)
[2017-03-08] MEDS ORDERED: BACL10TA PO (15:32)
[2017-03-08] MEDS ORDERED: TYLETAB34 PO (15:32)
== END 2017-03-08 16:35 | disposition home or self-care (01) ==
LOC: NEPE 11:43
DX: M79.605 Pain in left leg (principal); M81.0 Age-related osteoporosis without current pathological fracture; I10 Essential (primary) hypertension; E11.9 Type 2 diabetes mellitus without complications; E78.5 Hyperlipidemia, unspecified; M13.88 Other specified arthritis, other site; M79.7 Fibromyalgia; K21.9 Gastro-esophageal reflux disease without esophagitis; J44.9 Chronic obstructive pulmonary disease, unspecified
CPT/HCPCS: 72100; 73502; 93971; 99283; J1885; J2270; J2405

== ENCOUNTER 2017-03-13 13:27 | Emergency (ER) | payer OTHER ==
[~2017-03-13] VITALS: Ht 160 cm; Wt 90.0 kg
[~2017-03-13 13:27] MED LIST changes: +BACL10TA PO; +NAPR500T PO; +TYLETAB34 PO
[2017-03-13 13:48] VITALS: BP 124/58; PULSE 84; RESP 18; TEMP 97.8; O2SAT 97
--- NOTE | 2017-03-13 13:52 | PD ---
HPI Chief Complaint: pain, dizziness Time Seen by Provider: 13:52 Travel History International Travel<30 days: No Contact w/Intl Traveler<30days: No History of Present Illness HPI 72 YO F with PMH of HTN, DM, GERD, CAD, fibromyalgia presents to the ED via EMS for evaluation of 1 week history of nausea, 2 day history of episodic dizziness , single episode of NBNB vomiting. Asymptomatic on presentation. The patient denies fever, chills, headaches, CP, SOB, palpitations, anorexia, changes in bowel habits, dysuria, back pain, changes in gait, numbness, tingling, weakness of the extremities. She states that her tried to wake her today and was unable. This concerned her enough to come to the hospital. She was diagnosed with shingles a few days ago and is currently taking acyclovir. She states that she had a dizzy episode yesterday, so she called firefighters to the house. She states that her sugar was low. Firefighters treated her hypoglycemia and she refused transport to the hospital. PFSH Past Medical History Arthritis: Yes Asthma: Yes Autoimmune Disease: No Blood Disorders: No Anxiety: No Depression: Yes Heart Rhythm Problems: Yes ("sometimes when i lay on my side i feel fluttering ") Cancer: No Cardiac Catheterization: Yes High Cholesterol: Yes Chemotherapy: No Chest Pain: Yes Congestive Heart Failure: No COPD: No Cerebrovascular Accident: No Coronary Artery Disease: Yes Diabetes: No Diminished Hearing: No Endocrine: No Fibromyalgia: Yes Gastrointestinal Disorders: Yes GERD: Yes Glaucoma: No Genitourinary: No Headaches: Yes Hepatitis: No Hiatal Hernia: Yes Hypertension: Yes Immune Disorder: No Kidney Stones: Yes Musculoskeletal: Yes (BURSITIS) Neurologic: Yes Psychiatric: Yes Reproductive: No Respiratory: Yes (COPD) Migraines: Yes Myocardial Infarction: No Radiation Therapy: No Renal Failure: No Seizures: Yes (> 10 YEARS AGO) Sickle Cell Disease: No Sleep Apnea: No Thyroid Disease: No Ulcer: No Menopausal: Yes : 4 Para: 3 Miscarriage: 1 Tubal Ligation: Yes Past Surgical History Abdominal Surgery: Yes (GALLBLADDER REMOVED) AICD: No Appendectomy: No Arteriovenous Shunt: No Cardiac Surgery: Yes (HEART CATH 2YRS AGO) Cholecystectomy: Yes Coronary Artery Bypass Graft: No Ear Surgery: No Endocrine Surgery: No Eye Surgery: No Genitourinary Surgery: Yes (GALL) Gynecologic Surgery: Yes (TUBAL 33 YRS AGO) Insulin Pump: No Joint Replacement: No Oral Surgery: Yes Pacemaker: No Thoracic Surgery: Yes Valve Replacement: Yes (LEFT BREAST) Other Surgery: Yes (LEFT BREAST CALCIFACTIONS REMOVED) Social History Alcohol Use: No Tobacco Use: No Substance Use: No Allergies-Medications (Allergen,Severity, Reaction): Coded Allergies: Benadryl (Verified Allergy, Mild, PALPATATIONS, 03/13/17) PT DENIES SHE SAYS SHE HAS TAKEN BENADRYL WITH NO EFFECTS Reported Meds & Prescriptions Reported Meds & Active Scripts Active Lortab (Hydrocodone-Acetaminophen) 5-325 Mg Tab 1 Tab PO Q6H PRN Baclofen 10 Mg Tab 10 Mg PO Q8HR PRN 7 Days Reported Acyclovir 800 Mg Tab 800 Mg PO 5 TIMES A DAY 7 Days Lasix (Furosemide) 20 Mg Tab 20 Mg PO DIRECTED Florastor (Saccharomyces Boulardii) 250 Mg Cap 250 Mg PO BID Trazodone (Trazodone HCl) 150 Mg Tablet 150 Mg PO HS Fioricet (Pheetrhdhf-Cwthqiqallewm-Islseyph) 50-300-40 Mg Cap 1-2 Cap PO Q6H PRN Celexa (Citalopram Hydrobromide) 40 Mg Tab 40 Mg PO DAILY Metformin ER (Metformin HCl) 500 Mg Adrienne 500 Mg PO TIDPC With evening meal Flexeril (Cyclobenzaprine HCl) 10 Mg Tab 10 Mg PO Q8HR PRN Atorvastatin (Atorvastatin Calcium) 40 Mg Tab 40 Mg PO HS Aspirin 325 Mg Tab 81 Mg PO DAILY Proventil Hfa 6.7 GM Inh (Albuterol Sulfate) 90 Mcg/Act Aer 2 Puff INH Q4HR PRN Gabapentin 400 Mg Cap 800 Cap PO HS Isosorbide Mononitrate ER (Isosorbide Mononitrate) 30 Mg Adrienne 30 Mg PO DAILY Nitroglycerin SL (Nitroglycerin) 0.4 Mg Subl 0.4 Mg SL DIRECTED PRN ONE TABLET UNDER THE TONGUE NEEDED FOR CHEST PAIN, MAY REPEAT EVERY FIVE MINUTES FOR A TOTAL OF 3 DOSES OR CALL 911 IF NO RELIEF Omeprazole 20 Mg Tab 20 Mg PO DAILY Losartan (Losartan Potassium) 25 Mg Tab 25 Mg PO DAILY Verapamil SR (Verapamil HCl) 240 Mg Tab 240 Mg PO HS Review of Systems Except as stated in HPI: all other systems reviewed are Neg Physical Exam Narrative GENERAL: Well-nourished, well-developed nontoxic-appearing white female in no acute distress. SKIN: Focused skin assessment warm/dry. Vessicular rash distributed over the left buttock, left medial knee, consistent with shingles. HEAD: Normocephalic. EYES: No scleral icterus. No injection or drainage. PERRLA. EOMI. NECK: Supple, trachea midline. No JVD or lymphadenopathy. CARDIOVASCULAR: Regular rate and rhythm without murmurs, gallops, or rubs. RESPIRATORY: Breath sounds clear and equal bilaterally. No accessory muscle use. GASTROINTESTINAL: Abdomen soft, non-tender, nondistended. Active bowel sounds. No suprapubic tenderness. MUSCULOSKELETAL: No cyanosis, or edema. NEUROLOGICAL: Awake and alert. Cranial nerves II through XII intact. Motor and sensory grossly within normal limits. Five out of 5 muscle strength in all muscle groups. Normal speech. BACK: Nontender without obvious deformity. No CVA tenderness. Data Data Last Documented VS Vital Signs Date Time Temp Pulse Resp B/P Pulse Ox O2 Delivery O2 Flow Rate FiO2 03/13/17 14:05 98 03/13/17 13:48 97.8 84 18 124/58 Orders Urinalysis - C+S If Indicated (03/13/17 14:14) Ecg Monitoring (03/13/17 14:14) Iv Access Insert/Monitor (03/13/17 14:14) Oximetry (03/13/17 14:14) Sodium Chloride 0.9% Flush (Ns Flush) (03/13/17 14:15) Sodium Chlor 0.9% 1000 Ml Inj (Ns 1000 M (03/13/17 14:14) Complete Blood Count With Diff (03/13/17 14:14) Comprehensive Metabolic Panel (03/13/17 14:14) Ct Brain W/O Iv Contrast(Rout) (03/13/17 14:14) Potassium Chloride (Kcl) (03/13/17 16:00) Acyclovir (Zovirax) (03/13/17 16:30) Labs Laboratory Tests Test 03/13/17 14:15 White Blood Count 6.4 TH/MM3 Red Blood Count 4.67 MIL/MM3 Hemoglobin 13.1 GM/DL Hematocrit 39.7 % Mean Corpuscular Volume 84.9 FL Mean Corpuscular Hemoglobin 28.0 PG Mean Corpuscular Hemoglobin 33.0 % Concent Red Cell Distribution Width 14.5 % Platelet Count 152 TH/MM3 Mean Platelet Volume 9.6 FL Neutrophils (%) (Auto) 58.1 % Lymphocytes (%) (Auto) 27.4 % Monocytes (%) (Auto) 13.2 % Eosinophils (%) (Auto) 0.7 % Basophils (%) (Auto) 0.6 % Neutrophils # (Auto) 3.7 TH/MM3 Lymphocytes # (Auto) 1.7 TH/MM3 Monocytes # (Auto) 0.8 TH/MM3 Eosinophils # (Auto) 0.0 TH/MM3 Basophils # (Auto) 0.0 TH/MM3 CBC Comment DIFF FINAL Differential Comment Urine Color LIGHT-YELLOW Urine Turbidity CLEAR Urine pH 6.0 Urine Specific [place] 1.008 Urine Protein NEG mg/dL Urine Glucose (UA) 1000 mg/dL Urine Ketones NEG mg/dL Urine Occult Blood NEG Urine Nitrite NEG Urine Bilirubin NEG Urine Urobilinogen LESS THAN 2.0 MG/DL Urine Leukocyte Esterase SMALL Urine RBC LESS THAN 1 /hpf Urine WBC 4 /hpf Microscopic Urinalysis Comment CULT NOT INDICATED Sodium Level 141 MEQ/L Potassium Level 3.2 MEQ/L Chloride Level 107 MEQ/L Carbon Dioxide Level 24.7 MEQ/L Anion Gap 9 MEQ/L Blood Urea Nitrogen 11 MG/DL Creatinine 0.56 MG/DL Estimat Glomerular Filtration 107 ML/MIN Rate Random Glucose 230 MG/DL Calcium Level 8.3 MG/DL Total Bilirubin 0.3 MG/DL Aspartate Amino Transf 57 U/L (AST/SGOT) Alanine Aminotransferase 205 U/L (ALT/SGPT) Alkaline Phosphatase 198 U/L Total Protein 6.3 GM/DL Albumin 3.6 GM/DL [facility] Medical Decision Making Medical Screen Exam Complete: Yes Emergency Medical Condition: Yes Differential Diagnosis UTI versus anemia versus hypoglycemia versus acute neuritis versus other Narrative Course 72 YO F with PMH of HTN, DM, GERD, CAD, fibromyalgia presents to the ED via EMS for evaluation of 1 week history of nausea, 2 day history of episodic dizziness , single episode of NBNB vomiting. Asymptomatic on presentation. She states that her tried to wake her today and was unable. This concerned her enough to come to the hospital. She was diagnosed with shingles a few days ago and is currently taking acyclovir. She endorses decreased sleep 2/2 pain. Vitals reviewed. Physical exam is unremarkable. No focal neuro defects. CBC unremarkable. CMP with mild hypokalemia, elevated LFTs. No culture indicated of the UA. CT brain negative for acute process. Patient was administered 40mg potassium PO. Discussed the patient, workup and plan with Dr. Bran. Discussed the workup with the patient. Will prescribe a short course of Lortab for pain. Patient is agreeable to follow with the PCP. She is stable and discharged home. Diagnosis Primary Impression: Acute neuritis Referrals: Primary Care Physician Patient Instructions: General Instructions, Shingles (ED) Additional Instructions: Rest, hydrate. Take pain medication as prescribed. Resume at home medications as prescribed. DO NOT DRIVE WHILE TAKING PAIN MEDICATIONS. Follow up with your primary care provider. Return to the ED for any urgent or emergent medical condition. Med/Other Pt SpecificInfo: Prescription(s) given Scripts Hydrocodone-Acetaminophen (Lortab)5-325 Mg Tab1 Tab PO Q6H PRN (PAIN) #15 TAB Ref 0 Prov:Walter Bran MD 03/13/17 Disposition: 01 DISCHARGE HOME Condition: Stable Lisandra Lewis Mar 13, 2017 13:52
[2017-03-13] MEDS ORDERED: TRAZ1TAB45 PO (14:02)
[2017-03-13] MEDS ORDERED: FLOR250C PO (14:05)
[2017-03-13] MEDS ORDERED: FURO1TAB62 PO (14:05)
[2017-03-13] MEDS ORDERED: SODIUM CHLOR 0.9% 1000 ML INJ 1,000 ML IV ONE (14:14)
[2017-03-13] MEDS ORDERED: SODIUM CHLORIDE 0.9% FLUSH 10 ML FLUSH IVF PRN (14:15)
--- NOTE | 2017-03-13 14:48 | RADRPT ---
EXAM DATE/TIME: 03/13/2017 14:24 [facility] COMPARISON: No previous studies available for comparison. INDICATIONS : Dizziness, nausea and vomiting. RADIATION DOSE: 34.78 CTDIvol (mGy) MEDICAL HISTORY : Seizures. Cardiovascular disease Diabetes mellitus type 2. SURGICAL HISTORY : None. ENCOUNTER: Initial ACUITY: 2 days PAIN SCALE: 0/10 LOCATION: cranial TECHNIQUE: Multiple contiguous axial images were obtained of the head. Using automated exposure control and adj ustment of the mA and/or kV according to patient size, radiation dose was kept as low as reasonably a chievable to obtain optimal diagnostic quality images. DICOM format image data is available electro nically for review and comparison. FINDINGS: CEREBRUM: The ventricles are normal for age. No evidence of midline shift, mass lesion, hemorrhage or acute in farction. No extra-axial fluid collections are seen. POSTERIOR FOSSA: The cerebellum and brainstem are intact. The 4th ventricle is midline. The cerebellopontine angle i s unremarkable. EXTRACRANIAL: The visualized portion of the orbits is intact. SKULL: The calvaria is intact. No evidence of skull fracture. CONCLUSION: No acute disease. Abram Daniels MD on March 13, 2017 at 14:46 Board Certified Radiologist. This report was verified electronically.
[2017-03-13 14:59] LABS: AUTOMATED NEUTROPHIL # 3.7 TH/MM3 (1.8-7.7); BASOPHIL % 0.6 % (0.0-2.0); EOSINOPHIL % 0.7 % (0.0-4.0); HEMATOCRIT 39.7 % (35.0-46.0); HEMO FLAGS DIFF FINAL; LYMPH % 27.4 % (9.0-44.0); LYMPHOCYTE # 1.7 TH/MM3 (1.0-4.8); MEAN CELL VOLUME 84.9 FL (80.0-100.0); MONO % 13.2 % (0.0-8.0); NEUT % 58.1 % (16.0-70.0); PLATELET COUNT 152 TH/MM3 (150-450); RED BLOOD COUNT 4.67 MIL/MM3 (4.00-5.30); RED CELL DISTRIBUTION WIDTH 14.5 % (11.6-17.2); WHITE BLOOD COUNT 6.4 TH/MM3 (4.0-11.0)
[2017-03-13 15:37] LABS: ANION GAP 9 MEQ/L (5-15); AST (GOT) 57 U/L (15-37); BICARBONATE 24.7 MEQ/L (21.0-32.0); BLOOD UREA NITROGEN 11 MG/DL (7-18); CHLORIDE 107 MEQ/L (98-107); GLOMERULAR FILTRATION RATE 107 ML/MIN (>89); POTASSIUM 3.2 MEQ/L (3.5-5.1); SODIUM (NA) 141 MEQ/L (136-145)
[2017-03-13 15:41] LABS: ALKALINE PHOSPHATASE 198 U/L (45-117); ALT (GPT) 205 U/L (10-53); TOTAL BILIRUBIN ADULT 0.3 MG/DL (0.2-1.0)
[2017-03-13] MEDS ORDERED: POTASSIUM CHLORIDE 20 MEQ CONTROLLED RELEASE TAB PO ONE (16:00)
[2017-03-13] MEDS ORDERED: ACYC800T PO (16:10)
[2017-03-13 16:13] LABS: BLOOD, URINE NEG (NEG); COMMENT (UR) CULT NOT INDICATED; CULTURE IF INDICATED CULT NOT INDICATED; GLUCOSE,URINE 1000 mg/dL (NEG); KETONE, URINE NEG (NEG); NITRITE,URINE NEG (NEG); URINE COLOR LIGHT-YELLOW (YELLW/STRAW)
--- NOTE | 2017-03-13 16:26 | PD ---
Data Data Last Documented VS Vital Signs Date Time Temp Pulse Resp B/P Pulse Ox O2 Delivery O2 Flow Rate FiO2 03/13/17 14:05 98 03/13/17 13:48 97.8 84 18 124/58 Orders Urinalysis - C+S If Indicated (03/13/17 14:14) Ecg Monitoring (03/13/17 14:14) Iv Access Insert/Monitor (03/13/17 14:14) Oximetry (03/13/17 14:14) Sodium Chloride 0.9% Flush (Ns Flush) (03/13/17 14:15) Sodium Chlor 0.9% 1000 Ml Inj (Ns 1000 M (03/13/17 14:14) Complete Blood Count With Diff (03/13/17 14:14) Comprehensive Metabolic Panel (03/13/17 14:14) Ct Brain W/O Iv Contrast(Rout) (03/13/17 14:14) Potassium Chloride (Kcl) (03/13/17 16:00) Acyclovir (Zovirax) (03/13/17 16:30) Labs Laboratory Tests Test 03/13/17 14:15 White Blood Count 6.4 TH/MM3 Red Blood Count 4.67 MIL/MM3 Hemoglobin 13.1 GM/DL Hematocrit 39.7 % Mean Corpuscular Volume 84.9 FL Mean Corpuscular Hemoglobin 28.0 PG Mean Corpuscular Hemoglobin 33.0 % Concent Red Cell Distribution Width 14.5 % Platelet Count 152 TH/MM3 Mean Platelet Volume 9.6 FL Neutrophils (%) (Auto) 58.1 % Lymphocytes (%) (Auto) 27.4 % Monocytes (%) (Auto) 13.2 % Eosinophils (%) (Auto) 0.7 % Basophils (%) (Auto) 0.6 % Neutrophils # (Auto) 3.7 TH/MM3 Lymphocytes # (Auto) 1.7 TH/MM3 Monocytes # (Auto) 0.8 TH/MM3 Eosinophils # (Auto) 0.0 TH/MM3 Basophils # (Auto) 0.0 TH/MM3 CBC Comment DIFF FINAL Differential Comment Urine Color LIGHT-YELLOW Urine Turbidity CLEAR Urine pH 6.0 Urine Specific Norris 1.008 Urine Protein NEG mg/dL Urine Glucose (UA) 1000 mg/dL Urine Ketones NEG mg/dL Urine Occult Blood NEG Urine Nitrite NEG Urine Bilirubin NEG Urine Urobilinogen LESS THAN 2.0 MG/DL Urine Leukocyte Esterase SMALL Urine RBC LESS THAN 1 /hpf Urine WBC 4 /hpf Microscopic Urinalysis Comment CULT NOT INDICATED Sodium Level 141 MEQ/L Potassium Level 3.2 MEQ/L Chloride Level 107 MEQ/L Carbon Dioxide Level 24.7 MEQ/L Anion Gap 9 MEQ/L Blood Urea Nitrogen 11 MG/DL Creatinine 0.56 MG/DL Estimat Glomerular Filtration 107 ML/MIN Rate Random Glucose 230 MG/DL Calcium Level 8.3 MG/DL Total Bilirubin 0.3 MG/DL Aspartate Amino Transf 57 U/L (AST/SGOT) Alanine Aminotransferase 205 U/L (ALT/SGPT) Alkaline Phosphatase 198 U/L Total Protein 6.3 GM/DL Albumin 3.6 GM/DL MDM Medical Record Reviewed: Yes Supervised Visit with GALEN: Yes Narrative Course I, Dr. Bran, have reviewed the advance practice practitioner's documentation and am in agreement unless otherwise dictated below, met with the patient face to face, made the diagnosis, and the medical decision making was done by me. *My assessment and Findings: Pt unable to sleep due to pain from zoster rash, leading to ER visit. Mild transaminitis discussed with patient. Patient reassured. Outpatient treatment plan discussed. Scripts Hydrocodone-Acetaminophen (Lortab)5-325 Mg Tab1 Tab PO Q6H PRN (PAIN) #15 TAB Ref 0 Prov:Walter Bran MD 03/13/17 Walter Bran MD Mar 13, 2017 16:26
[2017-03-13] MEDS ORDERED: ACYCLOVIR 800 MG TAB PO ONE (16:30)
[2017-03-13] MEDS ORDERED: HYDR-3533 PO (16:32)
== END 2017-03-13 17:00 | disposition home or self-care (01) ==
LOC: NEPE 13:27
DX: B02.9 Zoster without complications (principal); R74.0 Nonspecific elevation of levels of transaminase and lactic acid dehydrogenase [LDH]; R42 Dizziness and giddiness; R11.0 Nausea; M79.2 Neuralgia and neuritis, unspecified; I10 Essential (primary) hypertension; E11.9 Type 2 diabetes mellitus without complications; K21.9 Gastro-esophageal reflux disease without esophagitis; M79.7 Fibromyalgia
CPT/HCPCS: 70450; 80053; 81001; 85025; 96360; 99284; J7030